=== PATIENT | male | born 1960 | race Caucasian/White ===

== ENCOUNTER 2020-07-15 10:00 | Outpatient (RCR) | payer OTHER, SELFPAY | END 2020-07-15 11:00 | disposition home or self-care (01) | LOC: PT 10:00 | PROVIDERS: Visit Provider Orthopaedic Surgery | DX: M75.21 Bicipital tendinitis, right shoulder (principal) | CPT/HCPCS: 20560; 97010; 97014; 97033; 97035; 97110; 97163; G0283 ==